=== PATIENT | female | born 1940 | race Two or more races ===

== ENCOUNTER 2023-03-31 18:33 | Inpatient (IN) | payer MEDICARE, OTHER ==
[~2023-03-31] VITALS: Ht 165.1 cm; Wt 82.8 kg
[2023-03-31] MEDS ORDERED: SODIUM CHLORIDE 0.9% 500 ML IVB ONE (19:00)
[2023-03-31] MEDS ORDERED: ACETAMINOPHEN 325 MG TAB PO ONE (19:00)
[2023-03-31 19:35] LABS: Hematocrit 41.3 % (36.0-46.0); Hemoglobin 13.7 g/dL (12.2-16.2); Mean Corpuscular Hemoglobin 29.7 pg (28.0-32.0); Mean Corpuscular Hgb Conc. 33.1 g/dL (32.0-36.0); Mean Corpuscular Volume 89.8 fL (80.0-100.0); Red Cell Distribution Width 14.6 % (11.8-14.3); White Blood Cell 13.8 10^3/uL (4.4-10.8)
[2023-03-31 19:37] LABS: Basophils % (manual) 0 (0.0-2.0); Blast Cells 0; Eosinophils % (manual) 0 (0-7); Metamyelocytes % 0; Myelocytes % 0; Promyelocytes % 0; Reactive Lymphocytes 0
[2023-03-31 19:49] LABS: Alanine Aminotransferase 34 U/L (7-40); Albumin 3.7 g/dL (3.2-4.8); Alkaline Phosphatase 167 U/L (46-116); Anion Gap 10 (5-15); Aspartate Aminotransferase 57 U/L (13-40); BUN/Creatinine Ratio 12.2 (10.0-20.0); Blood Urea Nitrogen 22 mg/dL (9-23); Calcium 9.1 mg/dL (8.7-10.4); Carbon Dioxide 19 mmol/L (20-30); Chloride 107 mmol/L (98-107); Glucose 97 mg/dL (74-106); Lipase 33 U/L (12-53); Magnesium 1.5 mg/dL (1.6-2.6); Potassium 4.3 mmol/L (3.5-5.1); Sodium 136 mmol/L (136-145)
[2023-03-31 19:50] LABS: Bilirubin, Total 1.6 mg/dL (0.2-1.0); Total Protein 5.8 g/dL (5.7-8.2)
[2023-03-31 19:55] LABS: Lactic Acid w/Reflex 2.8 mmol/L (0.4-2.0)
[2023-03-31 19:57] LABS: Band Neutrophils % (manual) 5; Lymphocytes % (manual) 6 (10.0-50.0); Monocytes % (manual) 6 (0-12); Platelet Estimate Adequate
[2023-03-31] MEDS ORDERED: SODIUM CHLORIDE 0.9% 1,000 ML IV ONE (20:45)
[2023-03-31] MEDS ORDERED: cefTRIAXone 1GM/50ML D5W 50 ML IV ONE (22:30)
[2023-03-31] MEDS ORDERED: VANCOMYCIN 1GM/200ML 200 ML IV ONE (22:30)
[2023-03-31 23:24] VITALS: PULSE 77; RESP 20; O2SAT 91
[2023-04-01] MEDS ORDERED: ONDANSETRON HCL 4 MG/2 ML VIAL IV PRN (00:45)
[2023-04-01] MEDS ORDERED: SODIUM CHLORIDE 0.9% 500 ML IV ONE (00:45)
[2023-04-01] MEDS ORDERED: TEMAZEPAM 15 MG CAP PO PRN (00:45)
[2023-04-01 00:59] LABS: Urine Amorphous Crystal FEW /hpf (None Seen); Urine Bacteria MANY /hpf (None Seen); Urine Blood 1+ /uL (Negative); Urine Clarity HAZY (Clear); Urine Color Yellow (Yellow); Urine Protein, UAD 1+ (Negative); Urine Specific Gravity 1.014 (1.001-1.035); Urine Urobilinogen Normal (Negative); Urine WBC 118 /hpf (0 - 5); Urine WBC Clumps PRESENT /hpf (None Seen); Urine pH 5.5 (5.0-8.0)
[2023-04-01] MEDS ORDERED: ALBUMIN 5% 250 ML IV ONE (01:00)
[2023-04-01] MEDS ORDERED: PHENYLEPHRINE IV 250 ML IV ONE (02:06)
[2023-04-01] MEDS: PHENYLEPHRINE IV 250 ML IV SCH ×3 (02:15→21:12)
[2023-04-01 08:24] VITALS: PULSE 71; RESP 14; O2SAT 98
[2023-04-01 08:27] LABS: Alanine Aminotransferase 34 U/L (7-40); Albumin 3.5 g/dL (3.2-4.8); Alkaline Phosphatase 56 U/L (46-116); Anion Gap 12 (5-15); Aspartate Aminotransferase 45 U/L (13-40); BUN/Creatinine Ratio 15.9 (10.0-20.0); Bilirubin, Total 0.9 mg/dL (0.2-1.0); Blood Urea Nitrogen 31 mg/dL (9-23); Calcium 8.6 mg/dL (8.5-10.1); Carbon Dioxide 20 mmol/L (20-30); Chloride 109 mmol/L (98-107); Glucose 93 mg/dL (74-106); Potassium 4.3 mmol/L (3.5-5.1); Sodium 141 mmol/L (136-145); Total Protein 5.1 g/dL (5.7-8.2)
[2023-04-01] MEDS ORDERED: cefTRIAXone 1GM/50ML D5W 50 ML IV SCH ×2 (09:00→23:00)
[2023-04-01 09:23] LABS: Mean Corpuscular Hemoglobin 29.3 pg (28.0-32.0); Red Blood Cells 4.07 10^6/uL (4.0-5.20)
[2023-04-01 09:26] LABS: Hematocrit 36.8 % (36.0-46.0); Mean Corpuscular Hgb Conc. 32.5 g/dL (32.0-36.0); Mean Corpuscular Volume 90.3 fL (80.0-100.0); Red Cell Distribution Width 14.6 % (11.8-14.3)
[2023-04-01 09:32] LABS: Band Neutrophils % (manual) 0; Basophils % (manual) 0 (0.0-2.0); Blast Cells 0; Eosinophils % (manual) 0 (0-7); Metamyelocytes % 0; Myelocytes % 0; Promyelocytes % 0; Reactive Lymphocytes 0; White Blood Cell 35.2 10^3/uL (4.4-10.8)
[2023-04-01] MEDS: ENOXAPARIN SOD 40 MG/0.4 ML SYRINGE SC SCH (10:04)
[2023-04-01] MEDS ORDERED: MEROPENEM 1GM IVPB 100 ML IV ONE (13:00)
[2023-04-01] MEDS ORDERED: MORPHINE SULFATE INJ 2 MG/ml SYRG IV PRN (13:00)
[2023-04-01 13:51] LABS: Lymphocytes % (manual) 2 (10.0-50.0); Monocytes % (manual) 4 (0-12); Platelet Estimate Adequate
[2023-04-01] MEDS ORDERED: MEROPENEM 1GM IVPB 100 ML IV SCH (14:00)
[2023-04-01] MEDS: SODIUM CHLORIDE 0.9% 1,000 ML IV SCH ×2 (14:30→23:00)
[2023-04-01 15:33] LABS: INR 1.4 (0.9-1.15); Prothrombin Time 14.7 sec (9.3-11.8)
[2023-04-01] MEDS ORDERED: D5W 5% 1,000 ML IV SCH (16:00)
[2023-04-01] MEDS: ACETAMINOPHEN 325 MG TAB PO PRN (16:06)
[2023-04-01] MEDS ORDERED: METO25TA5 PO (16:39)
[2023-04-01] MEDS ORDERED: LISI-275 PO (16:39)
[2023-04-01] MEDS ORDERED: DILT60TA PO (16:39)
[2023-04-01] MEDS: MEROPENEM 500MG IVPB 50 ML IV SCH (22:00)
[2023-04-02] VITALS (16 sets, daily range): BP systolic 107–167; BP diastolic 64–96; PULSE 72–122; RESP 16–20; TEMP 97.5–98.9; O2SAT 92–98
[2023-04-02] MEDS: PHENYLEPHRINE IV 250 ML IV SCH (03:15)
[2023-04-02 06:54] LABS: Basophils # (auto) 0.1 10 ^3/uL (0-0.2); Basophils % (auto) 0.3 % (0.0-2.0); Eosinophils # (auto) 0.4 10 ^3/uL (0-0.8); Eosinophils % (auto) 1.8 % (0.0-7.0); Hematocrit 35.1 % (36.0-46.0); Hemoglobin 11.4 g/dL (12.2-16.2); Lymphocytes # (auto) 1.8 10 ^3/uL (0.4-5.4); Lymphocytes % (auto) 7.9 % (10.0-50.0); Mean Corpuscular Hemoglobin 29.1 pg (28.0-32.0); Mean Corpuscular Hgb Conc. 32.6 g/dL (32.0-36.0); Mean Corpuscular Volume 89.4 fL (80.0-100.0); Monocytes # (auto) 0.5 10 ^3/uL (0-1.3); Monocytes % (auto) 2.3 % (0.0-12.0); Neutrophils # (auto) 19.4 10 ^3/uL (1.6-8.6); Neutrophils % (auto) 87.7 % (37.0-80.0); Red Blood Cells 3.93 10^6/uL (4.0-5.20); Red Cell Distribution Width 15.2 % (11.8-14.3); White Blood Cell 22.2 10^3/uL (4.4-10.8)
[2023-04-02 07:13] LABS: Alanine Aminotransferase 24 U/L (7-40); Albumin 3.1 g/dL (3.2-4.8); Alkaline Phosphatase 94 U/L (46-116); Anion Gap 9 (5-15); Aspartate Aminotransferase 45 U/L (13-40); BUN/Creatinine Ratio 15.9 (10.0-20.0); Bilirubin, Total 0.5 mg/dL (0.2-1.0); Blood Urea Nitrogen 23 mg/dL (9-23); Calcium 8.3 mg/dL (8.5-10.1); Carbon Dioxide 19 mmol/L (20-30); Chloride 113 mmol/L (98-107); Glucose 78 mg/dL (74-106); Potassium 3.8 mmol/L (3.5-5.1); Sodium 141 mmol/L (136-145); Total Protein 4.9 g/dL (5.7-8.2)
[2023-04-02 07:20] LABS: Prothrombin Time 12.4 sec (9.3-11.8)
[2023-04-02 07:21] LABS: INR 1.17 (0.9-1.15); Partial Thromboplastin Time 36.1 SEC (24.5-34.5)
[2023-04-02] MEDS: SODIUM CHLORIDE 0.9% 1,000 ML IV SCH (09:00)
[2023-04-02] MEDS: ENOXAPARIN SOD 40 MG/0.4 ML SYRINGE SC SCH (10:00)
[2023-04-02] MEDS: MEROPENEM 500MG IVPB 50 ML IV SCH (10:28)
[2023-04-02] MEDS ORDERED: METOPROLOL TARTRATE 25 MG TAB PO ONE (13:45)
[2023-04-02] MEDS ORDERED: SODIUM CHLORIDE 0.9% 1,000 ML IV SCH (13:45)
[2023-04-02] MEDS ORDERED: LIDOCAINE 2%HCL (LOCAL ANESTH.) INJ 20ML MDV ONE (13:53)
[2023-04-02] MEDS ORDERED: IODIXANOL 320MG/ML 100ML BTL IV ONE (13:53)
[2023-04-02] MEDS ORDERED: fentaNYL CITRATE 100 MCG/2 ML VL ONE (13:55)
[2023-04-02] MEDS ORDERED: MIDAZOLAM HCL 2MG/2ML 2ml VIAL (1mg/ml) ONE (13:55)
[2023-04-02] MEDS: ACETAMINOPHEN 325 MG TAB PO PRN (16:34)
[2023-04-02] MEDS ORDERED: MEROPENEM 1GM IVPB 100 ML IV SCH (22:00)
[2023-04-02] MEDS: METOPROLOL TARTRATE 25 MG TAB PO SCH (22:11)
[2023-04-03] VITALS (7 sets, daily range): BP systolic 142–169; BP diastolic 77–89; PULSE 64–87; RESP 16–20; TEMP 97.3–98.2; O2SAT 92–97
[2023-04-03] MEDS: HYDROcodone-ACET 5/325MG TAB PO PRN ×2 (01:42→20:57)
[2023-04-03 06:30] LABS: Anion Gap 9 (5-15); Carbon Dioxide 19 mmol/L (20-30); Chloride 113 mmol/L (98-107); Potassium 3.7 mmol/L (3.5-5.1); Sodium 141 mmol/L (136-145)
[2023-04-03 06:31] LABS: Calcium 8.1 mg/dL (8.7-10.4)
[2023-04-03 06:36] LABS: BUN/Creatinine Ratio 20.6 (10.0-20.0); Blood Urea Nitrogen 22 mg/dL (9-23); Glucose 73 mg/dL (74-106)
[2023-04-03 06:55] LABS: Basophils # (auto) 0 10 ^3/uL (0-0.2); Basophils % (auto) 0.2 % (0.0-2.0); Eosinophils # (auto) 0.1 10 ^3/uL (0-0.8); Eosinophils % (auto) 0.8 % (0.0-7.0); Lymphocytes # (auto) 1.6 10 ^3/uL (0.4-5.4); Lymphocytes % (auto) 11.8 % (10.0-50.0); Mean Corpuscular Hemoglobin 28.9 pg (28.0-32.0); Mean Corpuscular Hgb Conc. 32.3 g/dL (32.0-36.0); Mean Corpuscular Volume 89.5 fL (80.0-100.0); Monocytes # (auto) 0.4 10 ^3/uL (0-1.3); Monocytes % (auto) 2.7 % (0.0-12.0); Neutrophils # (auto) 11.1 10 ^3/uL (1.6-8.6); Neutrophils % (auto) 84.5 % (37.0-80.0); Nucleated Red Blood Cells % 0.1 %; Red Cell Distribution Width 15.3 % (11.8-14.3); White Blood Cell 13.2 10^3/uL (4.4-10.8)
[2023-04-03] MEDS: METOPROLOL TARTRATE 25 MG TAB PO SCH ×2 (09:37→22:00)
[2023-04-03] MEDS: ENOXAPARIN SOD 40 MG/0.4 ML SYRINGE SC SCH (09:38)
[2023-04-03] MEDS ORDERED: LISINOPRIL 10 MG TAB PO ONE (16:00)
[2023-04-03] MEDS ORDERED: FUROSEMIDE 20 MG/2 ML VIAL IV ONE (16:00)
[2023-04-03] MEDS: levoFLOXacin 500 MG TAB PO SCH (19:32)
[2023-04-04 05:00] VITALS: BP 150/70; PULSE 62; RESP 20; TEMP 98.3; O2SAT 93
[2023-04-04 06:43] LABS: Hematocrit 33.7 % (36.0-46.0); Hemoglobin 11.5 g/dL (12.2-16.2); Mean Corpuscular Hemoglobin 30.2 pg (28.0-32.0); Mean Corpuscular Hgb Conc. 34.2 g/dL (32.0-36.0); Mean Corpuscular Volume 88.5 fL (80.0-100.0); Red Blood Cells 3.81 10^6/uL (4.0-5.20); Red Cell Distribution Width 14.7 % (11.8-14.3); White Blood Cell 6.6 10^3/uL (4.4-10.8)
[2023-04-04 06:48] LABS: Anion Gap 8 (5-15); Carbon Dioxide 22 mmol/L (20-30); Chloride 108 mmol/L (98-107); Potassium 3.3 mmol/L (3.5-5.1); Sodium 138 mmol/L (136-145)
[2023-04-04 06:49] LABS: Calcium 8.4 mg/dL (8.5-10.1)
[2023-04-04 06:54] LABS: BUN/Creatinine Ratio 18.6 (10.0-20.0); Blood Urea Nitrogen 19 mg/dL (9-23); Glucose 87 mg/dL (74-106)
[2023-04-04] MEDS ORDERED: LEVOTHYROXINE SODIUM 50 MCG TAB PO SCH (07:00)
[2023-04-04 07:24] LABS: Basophils % (manual) 0 (0.0-2.0); Blast Cells 0; Eosinophils % (manual) 0 (0-7); Myelocytes % 0; Promyelocytes % 0; Reactive Lymphocytes 0
[2023-04-04 08:00] VITALS: PULSE 51; RESP 18; O2SAT 96
[2023-04-04 08:30] VITALS: BP 149/77; PULSE 59; RESP 17; TEMP 97.7; O2SAT 95
[2023-04-04 08:41] LABS: Band Neutrophils % (manual) 14; Lymphocytes % (manual) 22 (10.0-50.0); Metamyelocytes % 2; Monocytes % (manual) 8 (0-12); Platelet Estimate Decreased
[2023-04-04] MEDS ORDERED: LISINOPRIL 10 MG TAB PO SCH (10:00)
[2023-04-04] MEDS ORDERED: LEV50T PO (10:55)
[2023-04-04] MEDS ORDERED: TRAM50TA2 PO (10:55)
[2023-04-04] MEDS ORDERED: LEVO500T91 PO (10:55)
[2023-04-04] MEDS ORDERED: POTASSIUM CHL 20 Meq TABLET PO ONE (11:00)
[2023-04-04] MEDS: levoFLOXacin 500 MG TAB PO SCH (11:19)
[2023-04-04] MEDS: METOPROLOL TARTRATE 25 MG TAB PO SCH (11:19)
[2023-04-04] MEDS: ENOXAPARIN SOD 40 MG/0.4 ML SYRINGE SC SCH (11:20)
[2023-04-04] MEDS: HYDROcodone-ACET 5/325MG TAB PO PRN (14:33)
[2023-04-04 15:55] VITALS: BP 149/79; PULSE 59; RESP 17; TEMP 97.7; O2SAT 95
== END 2023-04-04 17:25 | disposition home health service (06) | DRG 871 ==
LOC: ER 18:33 → EDBD 18:33 → OVERFLOW 04-01 00:35 → WEST WING 04-02 11:07 → TELE-WESTW 04-02 19:27
PROVIDERS: ADMIT Nurse Practitioner; ATTEND Internal Medicine
PROC: 0T9430Z Drainage of Left Kidney Pelvis with Drainage Device, Percutaneous Approach (ICD-10-PCS; principal; 2023-04-02)
DX: A41.9 Sepsis, unspecified organism (principal); I50.31 Acute diastolic (congestive) heart failure; N17.0 Acute kidney failure with tubular necrosis; R65.21 Severe sepsis with septic shock; N13.6 Pyonephrosis; N13.9 Obstructive and reflux uropathy, unspecified; I25.10 Atherosclerotic heart disease of native coronary artery without angina pectoris; E03.9 Hypothyroidism, unspecified; I11.0 Hypertensive heart disease with heart failure; Z86.73 Personal history of transient ischemic attack (TIA), and cerebral infarction without residual deficits; Z90.710 Acquired absence of both cervix and uterus; I25.2 Old myocardial infarction; Z87.891 Personal history of nicotine dependence; B96.20 Unspecified Escherichia coli [E. coli] as the cause of diseases classified elsewhere
CPT/HCPCS: 36415; 50432; 71045; 74176; 74425; 76942; 80048; 80053; 81001; 83605; 83690; 83735; 84443; 84484; 85007; 85025; 85027; 85610; 85730; 87040; 87077; 87086; 87088; 87186; 93005; 93306; 97110; 97116; 97163; 97530; 99152; G0378; J2185; J2250; Q9967